=== PATIENT | male | born 1985 | race Caucasian/White ===

== ENCOUNTER → 2016-07-30 | Outpatient (CLI) | payer BC ==
[2016-07-30 11:10] LABS: ALBUMIN 4.7 g/dL (3.4-5.0); TOTAL PROTEIN 7.6 g/dL (6.4-8.5)
== END ==
LOC: LAB 10:33
PROVIDERS: ATTEND Family Medicine
DX: K71.2 Toxic liver disease with acute hepatitis (principal)
CPT/HCPCS: 36415; 80076; 82977